=== PATIENT | female | born 1970 | race Caucasian/White ===

== ENCOUNTER 2016-11-15 16:10 | Inpatient (IN) | payer BC ==
[~2016-11-15] VITALS: Ht 170.2 cm; Wt 93.2 kg
[~2016-11-15 16:10] MED LIST: ADVIL DPS200 MG PO; ATIVAN-DPS1 MG PO; COLACE-DPS100 MG PO; COMPAZINE10 MG PO; DECADRON-DPS4 MG PO; KEPPRA DPS500 MG PO; LEVAQUIN DPS500 MG PO; LEXAPRO DPS10 MG PO; MARYS PO; NORCO 5-325 TA1 EACH PO; OMEPRAZOLE40 MG PO; PEPCID DPS20 MG PO; PROCTOZONE-HC 230 GM PR; THERA1 EACH PO; TUCKS1 EACH PR; TYLENOL DPS325 MG PO; ULTRAM DPS50 MG PO
--- NOTE | 2016-11-23 13:11 | HP ---
ADMIT: 11/15/2016 RM/LOC: 533 [facility] MR#: [id number] [address] [address] ESTEE DEAN [address] [place] [address] History and Physical SEX: F AGE: 46 : 1970 DATE OF SERVICE: CHIEF COMPLAINT: Dyspnea, shortness of breath, and pneumonia. 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 She is followed by Dr. Nielson in our office. She has had increasing shortness of breath for the last 2 to 3 days with cough. She feels like there is sputum, but she cannot get it coughed up. She presented to the emergency room and was found to be hypoxemic, did respond to oxygen supplementation. Chest x-ray shows multiple pulmonary mets and large pleural effusion on the right side. She had a recent pleurocentesis done this past week with removal of fluid from her right lung. She is followed by Oncology, is currently on chemotherapy. CTA was ordered for possible PE. It did not show any PE, but shows a right upper lobe infiltrate. Cultures were taken. She was started on IV Zosyn in the emergency room. Her calcitonin in the emergency room was 2.06. Blood cultures were also obtained. Her lactic acid in the emergency room was 2.9. White blood count in the emergency room was 17.8, hemoglobin 9.3. She is admitted at this time for pneumonia, possible sepsis, for IV antibiotics, Oncology consultation. ALLERGIES: NONE LISTED. MEDICATIONS: 1. Hydrocodone p.r.n. for pain. 2. Lexapro 10 mg daily. 3. Lorazepam 1 mg every 12 hours p.r.n. for anxiety. 4. Omeprazole 20 mg p.o. daily. 5. Dulcolax p.r.n. PAST MEDICAL HISTORY: As noted above, she is followed by Dr. Adam for uterine sarcoma. She had a previous history of tubal ligation. 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 FAMILY HISTORY: Father at age 64 of [place]. Mother is alive and healthy. REVIEW OF SYSTEMS: A 10-point review of systems negative other than noted above. She does state she has had some decreased appetite, denies any increased abdominal distention, does have some left lower quadrant abdominal pain. PHYSICAL EXAMINATION: GENERAL: A 46-year-old female. She is alert, cooperative, and oriented x3. She does not appear to be any acute distress at this time. She is on oxygen to keep her sats above 90. On 2 L of oxygen, her ADMIT: 11/15/2016 RM/LOC: 533 [facility] MR#: [id number] [address] [address] [facility] [address] [place] [id number] History and Physical SEX: F AGE: 46 : 1970 sats 93%. VITAL SIGNS: BP is 130/78, respiratory rate is 22, temp 98.4 at this time, I believe in the emergency room, it was 100.1. HEENT: Eyes PERRLA. EOMs intact. TMs not seen. Throat is somewhat dry, but not inflamed. NECK: Supple. No meningeal signs. LUNGS: Decreased breath sounds bilaterally especially right lower lobe is decreased with bilateral scattered rhonchi. Poor air exchange. HEART: Tachycardic, regular rate. No murmur. BREASTS: Not examined. ABDOMEN: Somewhat distended and firm. Possible ascites versus masses. GENITOURINARY AND RECTAL: Deferred. EXTREMITIES: No clubbing, cyanosis, or edema. DIAGNOSTIC IMPRESSION: 1. Right upper lobe pneumonia. 2. 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 3. Hypoxemia. 4. Probable sepsis. 5. Tobacco abuse. PLAN: Blood cultures were obtained in the emergency room. She was given IV Zosyn in the emergency room. We will add IV vancomycin and monitor her laboratory values. Oncology consult. Ronny Stock MD/ tonia JOB #: [id number] CC: Tai Nielson, Attending Physician Tai Nielson, Family Physician
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
--- NOTE | 2016-11-29 13:56 | CO ---
ADMIT: 11/15/2016 RM/LOC: 517 [facility] MR#: [id number] [address] [address] ESTEE CAO [address] [place] [address] Consultation SEX: F AGE: 46 : 1970 DATE OF CONSULTATION: 11/29/2016 ATTENDING PHYSICIAN: Tai Nielson CONSULTING PHYSICIAN: Luz Bearden APRN TIME IN: 0850 hours. TIME-OUT: 0940 hours. REASON FOR CONSULTATION: Supportive care consultation was requested by Dr. Nazario for discussion of goals for care. HISTORY OF PRESENT ILLNESS: Ms. Cao is a very unfortunate 46-year-old female with a history of metastatic sarcoma, which started in the uterus in 2016 and upon diagnosis, was found to have lung metastases. She has been unresponsive to four lines of chemotherapy per Oncology's notes. In September of 2016, she was found to have brain metastases and underwent resection with Neurosurgery. She was admitted to the hospital on November 15 with progressive decline in dyspnea. She was found to have a urinary tract infection and pneumonia, which she has continued to receive treatment for. She was also noted to have a pleural effusion on the right side per CT scan of the chest, and she did eventually undergo PleurX catheter placement for that. CT of the abdomen and pelvis was done that showed a large left abdominal mass, which contain some gas and there was concern that there could be a fistula present. Additionally, she had multiple satellite nodules and masses throughout the mesentery omentum and pelvic perineum. She also had nodules in the liver as well as the pleural effusions and lung nodules and masses which were outlined above. Initially during her hospital stay, the patient desired ongoing aggressive care. The patient, unfortunately, declined over the course of the past weekend. Yesterday, she had increasing dyspnea and anxiety. At that time, she did direct with the assistance of her to not escalate care and to focus more on comfort. She did direct the do not resuscitate/do not intubate status. Due to her complexities, supportive care consultation was requested to discuss goals for care as well as to support the patient and family. In terms of advanced directives, the patient is a do not resuscitate/do not intubate status. She does not have a living will or healthcare power of watch dial printer on file. Her , Abdifatah Cao, whose phone is #[phone] is her next of kin medical decision maker. Symptomatically, the patient is lethargic. She does appear fairly comfortable but her reports that she will have breakthrough pain over the abdomen as well as significant dyspnea. Overall, nursing feels that the medications are keeping her fairly comfortable. She has been receiving frequent p.r.n. medications. She appears very weak and debilitated. PAST MEDICAL HISTORY: Metastatic sarcoma as outlined above, hysterectomy. ADMIT: 11/15/2016 RM/LOC: 517 [facility] MR#: [id number] [address] [place] [address] ESTEE CAO [address] [place] [address] Consultation SEX: F AGE: 46 : 1970 ALLERGIES: THE PATIENT HAS NO KNOWN MEDICATION ALLERGIES. CURRENT MEDICATIONS: Please see the patient's MAR for specific routes and dosages. Her current medications are as follows: 1. Ativan. 2. Morphine. 3. Benadryl. 4. Omeprazole. 5. Senokot. 6. Remeron. 7. Zithromax. 8. Duragesic patch. 9. Megace. 10.Cepacol. 11.Dulcolax. 12.Nilstat solution. 13.Lexapro. 14.Dulcolax. 15.Zosyn. 16.DuoNeb. 17.Zofran. 18.Hawthorne. 19.Tylenol. 20.Surfak. 21.Heparin flush. SOCIAL HISTORY: The patient is to her of 21 years. They have 3 children, the youngest of which is 10 years old. She has history of tobacco use, smoking few cigarettes a day; however, she did not use much alcohol per the chart. FAMILY HISTORY: Her father at 64 of unknown cause and her mother is alive and healthy. FUNCTIONAL STATUS: Prior to admission, she was living at home. I am not sure what her level of dependence was in terms of ADLs but it sounds like she could still ambulate. Her palliative performance scale prior to admission was likely around 60%. Currently, she is in bed. She is total care. She is pretty much mouth care only and is lethargic. Her current palliative performance scale is 10% to 20%. REVIEW OF SYSTEMS: Ten-point review of systems was attempted; however, due to the patient's mentation, it is unable to be obtained. PHYSICAL EXAMINATION: GENERAL: The patient is examined in the bed. She is in no acute distress. VITAL SIGNS: Temperature 97.5, pulse 126, respirations 30, blood pressure ADMIT: 11/15/2016 RM/LOC: 517 [facility] MR#: [id number] [address] [place] [id number] ESTEE CAO [address] [place] [address] Consultation SEX: F AGE: 46 : 1970 106/54, oxygen 100% on 3 L. HEENT. Head is normocephalic. Pupils are not examined. Oral mucosa pink and moist with fair dentition. NECK: Supple. RESPIRATORY: Respirations are, for the most part, nonlabored. They are little irregular. Lungs are diminished throughout. CARDIOVASCULAR: Rate and rhythm regular without murmurs, rubs, or gallops. She does have 1+ generalized edema noted. GASTROINTESTINAL: Abdomen is distended and firm. Bowel sounds are hypoactive. MUSCULOSKELETAL: Generalized weakness. No obvious joint deformities. NEUROLOGIC: Disoriented and mostly unresponsive. PSYCHIATRIC: Calm and cooperative. No agitation noted. DIAGNOSTIC DATA: Sodium 145, potassium 3.7, BUN 25, creatinine 0.9. Total protein 5.5, albumin 1.4. WBCs 18.8, hemoglobin 8.0, hematocrit 25.4, and platelets are 173. IMPRESSION: 1. Debility. 2. Lethargy. 3. Dyspnea. 4. Abdominal pain, status post nerve block. 5. Fatigue. 6. Malaise. 7. Metastatic uterine sarcoma. 8. Difficulty coping. 9. Pneumonia. 10.Pleural effusions, for which she has PleurX catheter. 11.Palliative care. 12.The patient is a DNR/DNI. PLAN OF TREATMENT: 1. At the time of assessment, the patient is lethargic and unable to participate in medical decision making. I was able to meet with the patient's , Ramiro, at the bedside and reviewed her overall status and goals for the time ahead. He confirms that the goal at this time is to focus strictly on comfort. We did review the concept of starting comfort care here at the hospital including stopping all non-comfort related medications including antibiotics. We also discussed stopping lab, x-ray, and other procedures at this time. He agrees with implementing comfort care at this point and understands that the things mentioned above will be discontinued. We did discuss the inpatient hospice benefit and philosophy. At this time, the patient's is obviously and understandably sad and overwhelmed, given the patient's overall status. He will think about inpatient hospice and see how the next day or so goes. His children will be here this afternoon and he will talk with them as well. Pending how she looks tomorrow, we will ADMIT: 11/15/2016 RM/LOC: 517 [facility] MR#: [id number] [address] [place] [phone] ESTEE CAO K [address] [place] [address] Consultation SEX: F AGE: 46 : 1970 potentially admit her to inpatient hospice. For the time being, we will start full comfort care. I did discuss this with Dr. Adam and has implemented a comfort care order set. I did continue her Lexapro and Remeron through her NG tube for comfort along with medications for dyspnea and pain. 2. In terms of the patient's children, they will be here later today and I did give the patient's information regarding pediatric grief support resources. 3. I will continue the morphine and Ativan as ordered p.r.n.; however, I will schedule the Ativan and morphine as well to hopefully prevent any breakthrough pain and dyspnea in the time ahead. Pending her status, she may need continuous infusion of pain medication pending her status. 4. We will continue to follow along in the care of this patient. 5. We would like to thank Dr. Nazario for the invitation of participate in this patient's care. Total consultation time was 50 minutes from 0850 hours to 0940 hours with 25 minutes from 0855 hours to 0920 hours, spent [id number] with the patient and her discussing goals for care and providing counseling and support. The plan of care was discussed with nursing, Social Work, as well as Dr. Adam. Luz Bearden APRN/ tonia JOB #: [id number] CC: Tai Nielson, Attending Physician Tai Nielson, Family Physician
--- NOTE | 2016-12-09 14:18 | CO ---
ADMIT: 11/15/2016 RM/LOC: 533 [facility] MR#: [id number] [address] [address] ESTEE DEAN [address] [place] [address] Consultation SEX: F AGE: 46 : 1970 DATE OF CONSULTATION: 11/16/2016 ATTENDING PHYSICIAN: Tai Nielson CONSULTING PHYSICIAN: Kadeem Adam MD REASON FOR CONSULTATION: Metastatic sarcoma. HISTORY OF PRESENT ILLNESS: The patient is a 46-year-old female, whom I follow up closely in the clinic for her metastatic sarcoma. This originally started in the uterus in 2015 and at that time, she was discovered to have several lung metastases. She has been through several different chemotherapy regimens with essentially no response to any of her treatments. She has had development of peritoneal disease as well. She then, in September of 2016, was discovered to have a solitary brain metastasis that was resected just after Socrates. We have most recently been treating her with a new antibody therapy with Olaratumab and she has only received two doses of this treatment. Our hope is to add immunotherapy as well with Keytruda in the next couple of weeks. She has had fairly significant functional decline in recent months. She presents to this hospital stay with progressive dyspnea and the discovery now of a UTI and probable pneumonia. She underwent a CT scan of her chest yesterday that shows again a large right-sided pleural effusion, as well as some inflammatory changes and these lung nodules. The lung nodules are stable at least over the last eight days. We did have her undergo a thoracentesis last week, I think with about a little over 1 L removed with negative cytology. This though is still thought to be a malignant effusion. It looks like it has quickly reaccumulated. She is having a fair amount of pain in the abdomen. She has some ongoing fatigue. She is short of breath just with one or two words. She is getting weaker and has difficulty walking without assistance. She still expresses an interest in being aggressive with her care. PAST MEDICAL HISTORY: 1. Metastatic sarcoma. 2. Hysterectomy. Otherwise, she has no chronic medical illnesses. ALLERGIES: REVIEWED IN HER CHART. MEDICATIONS: Reviewed in her chart. SOCIAL HISTORY: The patient is and has a very supportive and family. She has children. She has a history of smoking few cigarettes daily. She does not abuse alcohol. FAMILY HISTORY: Her father at 64 from unknown causes. Her mother is alive and healthy. ADMIT: 11/15/2016 RM/LOC: 533 [facility] MR#: [id number] [address] [place] [phone] [facility] [address] [place] [address] Consultation SEX: F AGE: 46 : 1970 REVIEW OF SYSTEMS: See HPI. Otherwise, complete review of systems was obtained and was negative. PHYSICAL EXAMINATION: VITAL SIGNS: Temp is 96, pulse 113, respirations 20, blood pressure 125/85. GENERAL: She is in mild distress with her dyspnea. She is alert and oriented and provides me good history. HEENT: Mucous membranes are moist. She has mild redness and some scattered white film on her tongue. Extraocular muscles are intact. Pupils are reactive and symmetrical. NECK: Without adenopathy or JVD. HEART: Regular rate and rhythm without murmur. LUNGS: Clear to auscultation bilaterally without any crackles or wheezes. ABDOMEN: Soft, nontender, nondistended with positive bowel sounds throughout. EXTREMITIES: No edema, rashes, lesions or adenopathy is appreciated. LABORATORY DATA: White count 17.8, hemoglobin 9.3, platelets 212. Albumin 1.9, creatinine 0.7, corrected calcium 10.3. IMPRESSION: 1. Metastatic sarcoma with recent progression with involvement in the brain, lungs, and peritoneum. 2. Probable pneumonia and urinary tract infection. 3. Large right-sided pleural effusion, likely malignant. 4. Oral thrush. 5. Intractable pain. 6. Ongoing constipation. RECOMMENDATIONS: I had a very long discussion with the patient and her today. We talked for about 70 minutes in the room about her current situation, her goals of therapy, and her prognosis. We have had some fairly blunt conversations in recent months about her disease status and the fact ADMIT: 11/15/2016 RM/LOC: 533 [facility] MR#: [id number] [address] [address] ESTEE DEAN [address] [place] [address] Consultation SEX: F AGE: 46 : 1970 that we are not able to really achieve a response with any of her therapies to date. She still expresses an interest in being aggressive and wants to continue on our current therapy, which is essentially causing her mild fatigue but otherwise is not a terribly toxic drug. During this hospital stay, she is going to need a repeat thoracentesis and I think we might as well put in a PleurX catheter as I am fairly convinced this is not malignant. We will give her a number of supportive medications with adjustment of her pain medications, add fluconazole for possible thrush, and help get her bowels better controlled. With regard to her abdominal mass and discomfort, she is going to have a CT scan today. We talked about possibly referring for radiation to see if this might help her comfort. I will follow her closely during this admission and appreciate being involved in her care. Kadeem Adam MD/ tonia JOB #: [id number] CC: Tai Nielson, Attending Physician Tai Nielson, Family Physician
--- NOTE | 2017-01-23 09:07 | DS ---
ADMIT: 11/15/2016 RM/LOC: 517 [facility] MR#: [id number] [address] [address] ESTEE DEAN [address] [place] [address] Discharge Summary SEX: F AGE: 46 : 1970 ADMISSION DATE: 11/15/2016 DISCHARGE DATE: 11/30/2016 FINAL DIAGNOSES: 1. Metastatic uterine leiomyosarcoma. 2. Pneumonia. 3. Hypoxemia secondary to metastatic uterine leiomyosarcoma and pneumonia. 4. Nicotine use. 5. Hypokalemia. 6. Anemia. 7. Urinary tract infection. REASON FOR ADMISSION: This is a 46-year-old, white female with known uterine leiomyosarcoma metastatic to lung and brain, who presented with increasing shortness of breath for one week, some cough and congestion. Workup revealed pneumonia with metastatic disease to her lungs. Therefore, she was admitted for further workup and stabilization. HOSPITAL COURSE: She was admitted on 11/15/2016, started on IV Zosyn, IV Levaquin, Zofran for nausea, DuoNeb treatments, and oxygen supplementation. Dilaudid [employer] was used for pain control. Oncology was also consulted. On 11/16 she did not have much oral intake. She remained on 2 L of oxygen supplementation. Sequential compression devices as well as enoxaparin subcu was used for DVT prophylaxis. We also did obtain Supportive Care consult. Oncology added fluconazole to broaden coverage and ordered thoracentesis with a PleurX catheter placement for recurrent pleural effusions. We had ordered physical therapy, however, she just felt too weak to participate. On 11/17 nothing really seemed to change. She remained weak, tired, had difficulty participating with therapy. On 11/18 she was convalescing from her PleurX catheter placement. Continued on antibiotics and breathing treatments. She was 3rd spacing a lot of fluid and had decreased urine output. Interventional Radiology was consulted for possible cryotherapy of the pelvic mass for palliation. Lasix and spironolactone were added to try to help manage her third-spacing fluid. Interventional Radiology did begin the prior process for cryotherapy of her pelvic mass. On 11/20 there was not much change, remained on oxygen, lung sounds were clear. On 11/21 her potassium was a little bit low so we did replace that IV, and she was continued on her antibiotics. Pharmacy continued to adjust her vancomycin dosage. On 11/22 she slept okay, still short of breath. She felt weak, she still at that point felt too weak to go home. Megace was added and increased her fentanyl patch for better pain control. She felt like she was having difficulty swallowing so we did get Speech Therapy to come and evaluate. On 11/23 she felt weak, unsteady on her feet. Her pain was tolerable, still not functional enough to care for herself at home. Poor p.o. intake. Speech Therapy felt that she would tolerate a mechanical soft diet with thin liquids. On 11/24 her pressures dropped a little bit so we did hold her spironolactone and did bolus her with IV normal saline. On 11/24 she had an okay night. Still extremely weak. We did add Zithromax to broaden coverage, and Dr. Adam added Remeron to help improve her appetite. On 11/25 she was still weak, slept okay. Her blood count was ADMIT: 11/15/2016 RM/LOC: 517 [facility] MR#: [id number] [address] [place] [id number] ESTEE DEAN [address] [place] [address] Discharge Summary SEX: F AGE: 46 : 1970 7.1, and I did talk to Estee about things. Deford that maybe a transfusion would improve her stamina so we did transfuse 1 unit of packed red blood cells. Unfortunately, that did not improve her functional status. On 11/26 she slept okay, not much pain, and we discontinued her vancomycin and felt that the only way to get her adequate nutrition would be with tube feedings. On 11/26 she underwent a celiac plexus block in hopes that we can improve some of her discomfort. On 11/28 she had worsening shortness of breath, increasing anxiety. At that point, she wished to change her code status to DNR/DNI. She did not want any more tube feeds so that was stopped as well. Morphine and Ativan were increased for comfort. At that point, Supportive Care came back on 11/29/2016 and provided more orders as far as comfort cares as family and Estee were ready to pursue inpatient hospice care. On 11/30 she was sleeping comfortably, I did not wake her up. Comfort medications were adjusted by Supportive Care, and [facility] was consulted for inpatient hospice care. Tai Nielson MD/ gregory JOB #: [id number] CC: Tai Nielson MD, Attending Physician Tai Nielson MD, Family Physician
== END 2016-11-30 15:55 | disposition short-term general hospital (02) | DRG 180 ==
LOC: ER 16:10 → 5MS 19:35
PROVIDERS: ADMIT Family Medicine
PROC: 0W9930Z Drainage of Right Pleural Cavity with Drainage Device, Percutaneous Approach (ICD-10-PCS; principal; 2016-11-17)
PROC: 30233N1 Transfusion of Nonautologous Red Blood Cells into Peripheral Vein, Percutaneous Approach (ICD-10-PCS; 2016-11-25)
PROC: 3E0G76Z Introduction of Nutritional Substance into Upper GI, Via Natural or Artificial Opening (ICD-10-PCS; 2016-11-26)
PROC: 3E0T3BZ Introduction of Anesthetic Agent into Peripheral Nerves and Plexi, Percutaneous Approach (ICD-10-PCS; 2016-11-26)
PROC: 3E0T33Z Introduction of Anti-inflammatory into Peripheral Nerves and Plexi, Percutaneous Approach (ICD-10-PCS; 2016-11-26)
DX: C78.00 Secondary malignant neoplasm of unspecified lung (principal); J18.1 Lobar pneumonia, unspecified organism; J91.0 Malignant pleural effusion; B37.0 Candidal stomatitis; E46 Unspecified protein-calorie malnutrition; C78.6 Secondary malignant neoplasm of retroperitoneum and peritoneum; C79.31 Secondary malignant neoplasm of brain; N39.0 Urinary tract infection, site not specified; Z51.5 Encounter for palliative care; D64.9 Anemia, unspecified; R13.10 Dysphagia, unspecified; E87.6 Hypokalemia; R09.02 Hypoxemia; F17.210 Nicotine dependence, cigarettes, uncomplicated; K59.00 Constipation, unspecified; Z82.49 Family history of ischemic heart disease and other diseases of the circulatory system; Z66 Do not resuscitate; Z85.42 Personal history of malignant neoplasm of other parts of uterus

== ENCOUNTER 2016-11-30 15:55 | Inpatient (IN) | payer OTHER, BC ==
--- NOTE | 2017-02-10 19:33 | DS ---
ADMIT: 11/30/2016 RM/LOC: 517 [facility] MR#: [id number] [address] [id number] [address] DE[address] [place] [address] Discharge Summary SEX: F AGE: 46 : 1970 ADMISSION DATE: 11/30/2016 DISCHARGE DATE: 12/07/2016 FINAL DIAGNOSIS: Metastatic uterine leiomyosarcoma. HOSPITAL COURSE: She was admitted to inpatient hospice on 11/30/2016 with routine comfort care orders, followed by [facility] hospice. On 12/01, she seemed more edematous, she was placed on some IV Lasix, was placed on morphine [employer]. She rested comfortably, gradually lost responsiveness. On 12/05, she seemed comfortable. Breath sounds were shallow. We decreased her IV Lasix to daily. On 12/07, she ultimately succumbed to her metastatic uterine cancer. Time of was 1029 hours. Tai Nielson MD/ lito JOB #: [id number] CC: Tai Nielson MD, Attending Physician Tai Nielson MD, Family Physician
== END 2016-12-07 10:29 | disposition expired | DRG 754 ==
LOC: 5MS 15:55
PROVIDERS: ADMIT Family Medicine
DX: C55 Malignant neoplasm of uterus, part unspecified (principal); J96.90 Respiratory failure, unspecified, unspecified whether with hypoxia or hypercapnia; C78.00 Secondary malignant neoplasm of unspecified lung; C79.31 Secondary malignant neoplasm of brain; E46 Unspecified protein-calorie malnutrition; Z51.5 Encounter for palliative care; F17.210 Nicotine dependence, cigarettes, uncomplicated; D64.9 Anemia, unspecified